=== PATIENT | female | born 1990 | race Asian ===

== ENCOUNTER 2020-06-25 21:40 | Inpatient (IN) | payer BC ==
[~2020-06-25] VITALS: Ht 165.1 cm; Wt 92.7 kg
--- NOTE | 2020-06-25 21:45 | NUR ---
Pt arrives on unit with spouse. States SROM of clear fluid at 2100. G2L1 at 39 weeks. Changed into clean gown. EFM and toco applied. VSS. Denies vaginal bleeding, regular ctx, and reports GFM. Amniotest positive. SVE per this RN /-2. Admission assessment completed. Dr. Christian notified. Orders for admission.
[2020-06-25 22:15] VITALS: BP 118/69; PULSE 72; TEMP 98.2
[2020-06-25 22:46] LABS: BASO % 0.1 % (0.0-2.0); EOS % 0.3 % (0-4.0); GRAN # 5.9 (1.4-6.5); GRAN % 75.6 % (42.2-75.2); HEMATOCRIT 37.4 % (37.0-47.0); HEMOGLOBIN 12.4 g/dl (12.5-16.0); LYMPH # 1.5 (1.2-3.4); LYMPH % 18.7 % (20.0-51.0); MEAN CELL VOLUME 81 fl (80.0-100.0); MEAN CORPUSCULAR HEMOGLOBIN 27 pg (27.0-31.0); MEAN CORPUSCULAR HGB CONC 33 g/dl (33.0-37.0); MEAN PLATELET VOLUME 10.9 fl (7.4-10.4); MONO # 0.4 (0.1-0.6); MONO % 5.2 % (1.7-9.3); PLATELET COUNT 155 K/mm3 (130-400); RED BLOOD COUNT 4.61 M/mm3 (4.10-5.30); REDCELL DISTRIBUTION WIDTH-CV 14.6 % (11.5-14.5)
[2020-06-25 23:30] VITALS: BP 109/59; PULSE 75
[2020-06-26] VITALS (26 sets, daily range): BP systolic 100–141; BP diastolic 49–82; PULSE 75–104; TEMP 98.1–98.9
--- NOTE | 2020-06-26 03:30 | NUR ---
Pt sitting straight up and leaning slightly forward with contractions, rubbing her back. Declines need for pain medication @ this time.
--- NOTE | 2020-06-26 03:30 | NUR ---
requests epidural for pt while pt in the bathroom. IV fluids increased to bolus rate.
--- NOTE | 2020-06-26 03:45 | NUR ---
pt decline epidural @ this time. PT sits at edge of bed, vocalizing with contractions.
--- NOTE | 2020-06-26 04:15 | NUR ---
pt requesting epidural.
--- NOTE | 2020-06-26 04:25 | NUR ---
Martin POUNCING LATHE OPERATOR into room for epidural placement. Pt to edge of bed. FHM tracing maternal heart rate. See anesthesia record for epidural information.
--- NOTE | 2020-06-26 06:15 | NUR ---
Assumed care of patient. Rests in bed, alert. Denies any needs at this time.
--- NOTE | 2020-06-26 06:30 | NUR ---
Rests in bed, alert. Pen g 2.5 million units iv given as ordered.
--- NOTE | 2020-06-26 07:45 | NUR ---
Dr. Atkinson called about patient being complete. Let her know that she can come in, and let her know that I will start pushing with patient. Patient pushes with contractions at 0749. 0752 Stops pushing with contractions. Set up for delivery. 0756 Dr. Atkinson in room. Prepped for delivery. [address] Atkinson. 0805 Spontaneous delivery of placenta by Dr. Atkinson. Pitocin infusing at 333 ccs an hour as ordered and per protocol.
--- NOTE | 2020-06-26 08:15 | NUR ---
Rest in bed, alert. Repair work being done by Dr. Atkinson. Denies any needs at this time.
--- NOTE | 2020-06-26 08:30 | NUR ---
Rests in bed, alert. Holds baby lovingly.
--- NOTE | 2020-06-26 09:30 | NUR ---
Rests in bed, alert. Eating breakfast. Denies any discomfort at this time.
--- NOTE | 2020-06-26 10:30 | NUR ---
Ambulates to the bathroom. Unable to void at this time. To nursery via wheel chair to watch baby get bath. 1100 To room 214, oriented to room. Denies any discomfort at this time.
[2020-06-26] MEDS ORDERED: MOTRIN 800800 MG/TAB PO (18:02)
[2020-06-27 00:30] VITALS: BP 101/60; PULSE 80; TEMP 97.7
[2020-06-27 08:07] VITALS: BP 122/64; PULSE 70; TEMP 97.8
--- NOTE | 2020-06-27 09:04 | NUR ---
Initial visit; Patient indisposed, Health And Safety Inspector left card of congratulations for the of their son and information regarding the availability of spiritual care at our hospital.
== END 2020-06-27 16:10 | disposition home or self-care (01) | DRG 768 ==
LOC: LDRO 21:40 → LDR 21:45 → OB 06-26 10:30
PROVIDERS: Obstetrics & Gynecology; ADMIT Obstetrics & Gynecology
PROC: 10E0XZZ Delivery of Products of Conception, External Approach (ICD-10-PCS; principal; 2020-06-26)
PROC: 0UQJXZZ Repair Clitoris, External Approach (ICD-10-PCS; 2020-06-26)
PROC: 0HQ9XZZ Repair Perineum Skin, External Approach (ICD-10-PCS; 2020-06-26)
DX: O24.420 Gestational diabetes mellitus in childbirth, diet controlled (principal); Z37.0 Single live birth; O99.824 Streptococcus B carrier state complicating childbirth; O70.0 First degree perineal laceration during delivery; O71.89 Other specified obstetric trauma; Z3A.39 39 weeks gestation of pregnancy
CPT/HCPCS: J2540; J2590; J2795; J7120